=== PATIENT | male | born 1970 | race African-American/Black ===

== ENCOUNTER 2022-09-15 21:02 | Emergency (ER) | payer MEDICAID ==
[~2022-09-15] VITALS: Ht 170.2 cm; Wt 77.0 kg
[2022-09-16] MEDS ORDERED: LIDOCAINE HCL/PF 1% 10 MG/ML 5ML VIAL INFIL ONE (00:45)
[2022-09-16] MEDS ORDERED: KETOROLAC 60MG/2ML VIAL IM ONE (00:45)
[2022-09-16] MEDS ORDERED: TETANUS, DIPHTHERIA, PERTUSSIS VAC/PF 0.5ML (>10YR OLD) IM ONE ×2 (00:45→02:45)
[2022-09-16] MEDS ORDERED: ACETAMINOPHEN 325MG TABLET PO ONE (02:45)
[2022-09-16] MEDS ORDERED: PENI500T MT (04:34)
[2022-09-16] MEDS ORDERED: IBUP-2029 MT (04:34)
[2022-09-16 04:50] VITALS: BP 122/82
== END 2022-09-16 04:58 | disposition home or self-care (01) ==
LOC: ER 21:02
DX: S01.511A Laceration without foreign body of lip, initial encounter (principal); Y08.89XA Assault by other specified means, initial encounter; Y93.89 Activity, other specified; Y92.89 Other specified places as the place of occurrence of the external cause; Y99.8 Other external cause status; I10 Essential (primary) hypertension
CPT/HCPCS: 36415; 70450; 70486; 71045; 84484; 90471; 90715; 96372; 99291; J1885; J3490; Z7610

== ENCOUNTER 2022-09-25 14:45 | Emergency (ER) | payer MEDICAID ==
[~2022-09-25] VITALS: Ht 177.8 cm; Wt 85.0 kg
[~2022-09-25 14:45] MED LIST: IBUP-2029 MT; PENI500T MT
[2022-09-25 14:48] VITALS: BP 136/98
[2022-09-25] MEDS ORDERED: BO1 TP (15:20)
== END 2022-09-25 15:32 | disposition home or self-care (01) ==
LOC: ER 14:45
DX: Z48.02 Encounter for removal of sutures (principal); I10 Essential (primary) hypertension
CPT/HCPCS: 99281; Z7610